=== PATIENT | male | born 1955 | race Caucasian/White ===

== ENCOUNTER → 2017-08-13 | Outpatient (CLI) | payer OTHER ==
[~2017-08-13] MED LIST: ASPIRIN ADULT L81 M2 PO; CALCIUM1 TA1 PO; FAMVIR500 MG PO; GLUCOSAMINE & C1 CA1 PO; JANUMET XR1 TER PO; LIPITOR40 MG PO; LIPOFEN150 MG PO; LOSARTAN POTAS100 MG PO; ZYRTEC ALLERGY10 MG PO
--- NOTE | 2017-08-13 11:21 | RADIOLOGY REPORT PS360 ---
EXAM: LUMBAR SPINE 5 VIEWS HISTORY: ACUTE RT SCIATICA, RT LBP ORDERING PHYSICIAN: Felice Hernandez MD PATIENT AGE: 61 years COMPARISON: 12/01/2008 FINDINGS: There is mild levoscoliosis of the lumbar spine. There is lumbar spondylosis with degenerative disc disease at T12-L1, L1-L2, L2-L3, and L3-L4 and to a lesser degree at L4-5 with decrease in the disc spaces and endplate osteophytes. Facet sclerosis is present at L5-S1. No fracture or dislocation. No lytic or blastic change. There slight decrease in height anteriorly at T12 unchanged. IMPRESSION: Multilevel lumbar spondylosis with degenerative disc disease and facet arthritic change. The degenerative disc disease is slightly worse at L1-L2 and L2-L3 compared to the previous exam
== END ==
LOC: RAD 10:47
DX: M54.41 Lumbago with sciatica, right side (principal)

== ENCOUNTER → 2017-08-20 | Outpatient (CLI) | payer OTHER ==
--- NOTE | 2017-08-21 12:08 | RADIOLOGY REPORT PS360 ---
MRI-L-SPINE W/O, MRI-3D RENDERING/MYELOGRAM HISTORY: Low back and right leg pain with loss of decreased range of motion ACUTE RT SIDED LOW BACK PAIN ORDERING PHYSICIAN: Felice Hernandez MD PATIENT AGE: 61 years COMPARISON: Radiograph of 08/13/2017 TECHNIQUE: Standard multiplanar multiecho sequences are performed without contrast. 3-D MIP and myelographic images are also rendered and reviewed FINDINGS: The spinal cord ends at the T12-L1 level. There is multilevel degenerative disc disease. There is mild lumbar scoliosis convex left. T11-T12: Mild degenerative disc disease with endplate irregularity. T12-L1: Degenerative disc disease with endplate irregularity L1-L2: Severe degenerative disc disease with type II endplate changes and Schmorl's nodes with mild retrolisthesis of L1 approximately 3 mm with bulging disc slightly eccentric towards the right causing right lateral recess and foraminal narrowing causing mild impingement upon the right L2 nerve root. L2-L3: Severe degenerative disc disease with type II endplate changes and bulging disc along with mild facet and ligamentum flavum hypertrophy with mild bilateral foraminal narrowing. L3-L4: Degenerative disc disease with type I endplate changes on the right with mild retrolisthesis of L3 of 2 to 3 mm along with moderate bulging disc which is eccentric towards the left impinging upon both L4 nerve roots more prominent on the left with bilateral lateral recess narrowing left greater than right and bilateral foraminal narrowing. L4-L5: Mild degenerative disc disease with concentric bulging disc along with facet and ligamentum flavum hypertrophy with moderate bilateral lateral recess narrowing and moderate bilateral foraminal narrowing. Prominent ligamentum flavum hypertrophy noted on the right causing moderate right lateral recess narrowing impinging upon the thecal sac laterally on the right. L5-S1: Mild degenerative disc disease with bulging discs with moderate facet hypertrophic change with [id number] bilateral foraminal narrowing. No canal stenosis or extruded herniated disc. Incidental note made of a 2 cm left renal cyst. IMPRESSION: There is severe lumbar spondylosis with multilevel degenerative disc disease, endplate changes, bulging discs, and facet and ligamentum flavum hypertrophy with varying degrees of foraminal and lateral recess narrowing and neural impingement. This is described in detail above. Please see above for detailed description at each level. No disc herniation or canal stenosis
== END ==
LOC: RAD 14:27
DX: M54.41 Lumbago with sciatica, right side (principal)